=== PATIENT | male | born 1995 | race Caucasian/White ===

== ENCOUNTER 2016-05-07 16:45 | Emergency (ER) | payer OTHER ==
[~2016-05-07] VITALS: Ht 190.5 cm; Wt 147.7 kg
[2016-05-07 16:45] VITALS: BP 177/72; PULSE 97; TEMP 100; O2SAT 96; Ht 190.5 cm; Wt 147.7 kg
[2016-05-07] MEDS ORDERED: NO ROUTINE MEDS (17:03)
--- NOTE | 2016-05-07 17:10 | ERPDOC ---
Departure Disposition Decision Date: May 07, 2016 Disposition Decision Time: 17:21 (JESE AMOR APRN) Disposition: 01 DISCHARGED HOME, SELF-CARE Impression Impression (JESE AMOR APRN) Impression: Primary Impression: Strain of lumbar region Encounter type: initial encounter Qualified Codes: S39.012A - Strain of muscle, fascia and tendon of lower back, initial encounter Severity: Moderate (JESE AMOR APRN) Condition: Stable Seen By: Mid-level only (JESE AMOR APRN) Patient Instructions: Acute Low Back Pain (ED) Problems/Meds/Labs Reviewed?: Yes Medications reviewed and manag: Yes (JESE AMOR APRN) Additional Instructions: Take the Naproxen as prescribed. Use the [place] and Cyclobenzaprine as needed for pain and muscle spasms. I do want you to rest at home. May use warm compresses and stretches at home. Follow up with your primary care provider this week if this is not improving. If you should develop weakness or numbness/ tingling in your bilateral lower extremities then return to ER. Follow up care ordered?: Yes Mental Status: Alert (JESE AMOR APRN) Scripts Hydrocodone/Acetaminophen ([place] 5-325 Tablet) 5-325 Tablet 1 TAB PO Q6H Y for PAIN, #12 TAB 0 Refills Prov: JESE AMOR APRN 05/07/16 Naproxen (Naprosyn) 500 Mg Tablet 1 TAB PO BID, #20 TAB 0 Refills Prov: JESE AMOR APRN 05/07/16 Cyclobenzaprine HCl (Cyclobenzaprine HCl) 10 Mg Tablet 1 TAB PO TID, #15 TAB 0 Refills Prov: JESE AMOR APRN 05/07/16 HPI - Back Pain General Chief Complaint: Low Back Pain or Injury Stated Complaint: BACK PAIN Time Seen by Provider: 16:55 Source: patient Exam Limitations: no limitations (JESE AMOR APRN) Time Seen by Provider: 16:55 (MIGUEL WHITTEN MD) HPI - Back Pain Initial Comments He was lifting today #600. He did have a belt on. He felt a pulling in his right lower back during the lift and had sudden pain. Put the bar down and took the belt off but pain made him lay down on the floor. He did not take anything for the pain prior to coming to ER. This occurred in the last 45 minutes. Denies any weakness, numbness/tingling in his BLE. Did not have any fall or trauma. Occurred At: school Onset/Timing: Rapid Duration: 1 hr Severity/Quality: moderate Location: paraspinous muscles (right lower back) Radiation: other (None) 1 - area of pain Method of Injury/Context: unknown Associated Sypmtoms: lower back pain, muscle spasms, DENIES: fever, loss of bladder control, loss of bowel control, numbness in legs/feet, sensory/motor loss, tingling in legs/feet, weakness Hx of Similar Symptoms: No (NOLD,JESE N ROLLED HAM LACER) Allergies: Coded Allergies: No Known Allergies (Unverified , 05/07/16) Past History Past Medical History Pt denies signifigant PMH (NOLD,JESE N ROLLED HAM LACER) Surgical History Denies Surgeries (NOLD,JESE N ROLLED HAM LACER) Family History Family History: Negative (NOLD,JESE N ROLLED HAM LACER) Social History Smoking Status: Never smoker Substance Use Type: does not use Alcohol Intake: none (NOLD,JESE N ROLLED HAM LACER) Review of Systems Constitutional Constitutional: DENIES: chills, dizziness, fatigue, fever, weakness (NOLD, JESE N ROLLED HAM LACER) GI Upper Abdomen: DENIES: nausea, pain, vomiting Lower Abdomen: DENIES: constipation, diarrhea, pain (NOLD,JESE N ROLLED HAM LACER) Musculoskeletal General: pain (right lower back), tenderness (right lower back) (NOLD,JESE N ROLLED HAM LACER) Integumentary Skin: DENIES: color change, rash (NOLD,JESE N ROLLED HAM LACER) Neurological General: DENIES: headache, numbness, tingling, weakness (NOLD,JESE N ROLLED HAM LACER) Physical Exam General General Nourishment: well nourished, well developed, appears stated age, no acute distress, adult General Body Habitus: well groomed (NOLD,JESE N ROLLED HAM LACER) Vitals and Pain First Documented Vital Signs Date Time Temp Pulse Resp B/P Pulse Ox O2 Delivery O2 Flow Rate FiO2 05/07/16 16:45 100.0 97 22 177/72 96 Room Air (MIGUEL WHITTEN MD) Vitals and Pain Weight: Kilograms: 147.700 Height (feet): 6 Height (inches): 3.00 Triage Pain Scale: (JESE AMOR APRN) RN VS reviewed by Provider: Yes (JESE AMOR APRN) Normal Exams: Neck: Full range of motion, without adenopathy, JVD, bruits or thyromegaly Chest/Resp: Clear all jones, with good airflow, and symmetry bilaterally CV: Regular rate and rhythm, without murmur or gallop, Pulses 2+ all extremities, capillary refill, <2 seconds all ext., no pedal edema noted Abdomen: Bowel sounds positive, soft, non-tender, non-distended, no hepatosplenomegaly, masses or bruits noted Integumentary: No rashes, hives, or bruising noted Neurologic: Patient is alert, and oriented Psychiatric: Patient exhibits, appropriate attention, emotion and affect (JESE AMOR APRN) Musculoskeletal (brief) Musculoskeletal Brief: FOUND: other (sensation intact to BLE, strenght in BLE is 5/5. Able to dorsiflex the bilateral great toes. ), tenderness (Mild TTP along the right lower back musculature lateral to the spine), NOT FOUND: deformity, loss of motion (JESE AMOR APRN) Differential Diagnoses Considering: Compression Fracture, Fracture, Lumbar Sprain, Lumbar Strain, Other (sciatica) (JESE AMOR APRN) Progress Results/Orders Orders Procedure Category Date Status Time Morphine Sulfate PHA 05/07/16 Complete (Morphine) 17:15 Orphenadrine (Norflex) PHA 05/07/16 Complete 17:15 Ketorolac (Toradol) PHA 05/07/16 Complete 17:15 (MIGUEL WHITTEN MD) Medications Current ED Medications Morphine Sulfate (Morphine) 4 mg O ONCE IM Last administered on 05/07/16 17: 15; Start 05/07/16 at 17:15; Stop 05/07/16 at 17:16; Status DC Orphenadrine Citrate (Norflex) 60 mg O ONCE IM Last administered on 05/07/16 17:13; Start 05/07/16 at 17:15; Stop 05/07/16 at 17:16; Status DC Ketorolac Tromethamine (Toradol) 60 mg O ONCE IM Last administered on t 17:12; Start 05/07/16 at 17:15; Stop 05/07/16 at 17:16; Status DC (MIGUEL WHITTEN MD) Progress Progress IM Morphine, Toradol, and Norflex given today. Will have him rest at home. [place] , Cyclobenzaprine, and Naproxen at home for pain. If not improving then follow up with his PCP in clinic. (JESE AMOR APRN) Progress Patient's history and exam reviewed as well as care given in ER by midlevel. Agree with care and follow up plan as outlined. (MIGUEL WHITTEN MD) JESE AMOR APRN May 07, 2016 17:10 MIGUEL WHITTEN MD May 07, 2016 17:28
[2016-05-07 17:15] VITALS: RESP 20
[2016-05-07] MEDS ORDERED: KETOROLAC 60mg/2ml INJECTION IM ONE (17:15)
[2016-05-07] MEDS ORDERED: MORPHINE SULFATE 4 MG SYRINGE IM ONE (17:15)
[2016-05-07] MEDS ORDERED: ORPHENADRINE 60mg/2ml INJECTION IM ONE (17:15)
--- NOTE | 2016-05-07 17:15 | NUR ---
MEDS TORADOL, NORFLEX AND MS GIVEN IM FOR PAIN.
[2016-05-07] MEDS ORDERED: HYDR-4246 PO (17:23)
[2016-05-07] MEDS ORDERED: NAPR500T PO (17:23)
[2016-05-07] MEDS ORDERED: CYCL-375 PO (17:23)
== END 2016-05-07 17:30 | disposition home or self-care (01) ==
LOC: ED 16:45
DX: S39.012A Strain of muscle, fascia and tendon of lower back, initial encounter (principal); X50.0XXA Overexertion from strenuous movement or load, initial encounter; Y93.B3 Activity, free weights; Y92.214 College as the place of occurrence of the external cause; Y99.8 Other external cause status
CPT/HCPCS: 96372; 99283; J1885; J2360